=== PATIENT | male | born 1955 | race Caucasian/White ===

== ENCOUNTER 2021-12-20 09:37 | Observation (INO) ==
[2021-12-20 10:49] LABS: Basophils % 0.5 % (0.0-0.8); Eosinophils # 0.3 10*3/uL (0.0-0.87); Hematocrit 35.3 VOL% (42.0-52.0); Immature Granulocytes % 0.2 %; Immature Granulocytes Absolute 0.01 #; Lymphocytes # 2.3 10*3/uL (1.4-4.0); Lymphocytes % 38.7 % (21.2-54.2); Mean Corpuscular Volume 96.7 FL (87-102); Mean Platelet Volume 10.9 FL (9.6-12.0); Monocytes # 0.5 10*3/uL (0.11-0.8); Monocytes % 8.9 % (1.7-12.7); Neutrophils % 46.7 % (38.7-73.9); Platelet Count 222 T/CUMM (130-400); Red Blood Count 3.65 MC/CUMM (3.8-5.5); Red Cell Distribution Width 12.8 % (9.3-17.3); White Blood Count 6.1 T/CUMM (4-12)
[2021-12-20 11:10] LABS: Bilirubin,Total 0.4 MG/DL (0.20-1.00); Calcium 9.4 MG/DL (8.5-10.1); Osmolality,Calculated 281.5 MOS/KG (273-304); Platelet Estimate Adequate; Potassium 3.9 MMOL/L (3.5-5.1); Total Protein 7.4 G/DL (6.4-8.2)
[2021-12-20] MEDS ORDERED: ENOXAPARIN 100 MG/ML SYRINGE SUBCUT STA (11:39)
[2021-12-20] MEDS ORDERED: NITROGLYCERIN SL 0.4 MG TABLET SL PRN (11:39)
[2021-12-20] MEDS ORDERED: MORPHINE 2 MG/1 ML SYRINGE IV PRN (12:07)
[2021-12-20] MEDS ORDERED: ONDANSETRON 4 MG/2 ML VIAL IV PRN (12:07)
[2021-12-20] MEDS ORDERED: ACETAMINOPHEN 325 MG TABLET PO PRN (12:07)
[2021-12-20] MEDS ORDERED: POTASSIUM CHLORIDE RIDER 10 MEQ/100 ML PREMIX IV PRN (12:11)
[2021-12-20] MEDS ORDERED: diphenhydrAMINE CAP 50 MG CAPSULE PO ONE (12:11)
[2021-12-20] MEDS ORDERED: MAGNESIUM SULF RIDER 2 GM/50 ML PREMIX IV PRN (12:11)
[2021-12-20] MEDS ORDERED: SODIUM CHLORIDE 0.9% 1,000 ML IV SCH (12:30)
[2021-12-20 12:44] LABS: INR 0.9; PT Patient Result 10.1 SECS (10.5-12.0)
[2021-12-20] MEDS ORDERED: diphenhydrAMINE CAP 25 MG CAPSULE ONE (13:53)
[2021-12-20] MEDS ORDERED: HEPARIN/NACL 0.9% 2 UNITS/ML 2,000 UNIT/1,000 ML BAG IV ONE (13:59)
[2021-12-20 14:02] VITALS: BP 116/68
[2021-12-20] MEDS ORDERED: MIDAZOLAM 2 MG/2 ML VIAL ONE (14:19)
[2021-12-20] MEDS ORDERED: fentaNYL 100 MCG/2 ML VIAL ONE (14:19)
[2021-12-20] MEDS ORDERED: HEPARIN 5,000 UNIT/1 ML VIAL ONE (14:25)
[2021-12-20] MEDS ORDERED: PROPRANOLOL 40 MG TABLET PO SCH (21:00)
[2021-12-20] MEDS ORDERED: LATANOPROST 0.005% OPH SOLN 2.5 ML BOTTLE BOTH EYES SCH (21:00)
[2021-12-20] MEDS ORDERED: GABAPENTIN 300 MG CAPSULE PO SCH (21:00)
[2021-12-20] MEDS ORDERED: SIMVASTATIN 20 MG TABLET PO SCH (21:00)
[2021-12-20] MEDS ORDERED: allopurinoL 300 MG TABLET PO SCH (21:00)
[2021-12-21] MEDS ORDERED: CHLORTHALIDONE 25 MG TABLET PO SCH (09:00)
[2021-12-21] MEDS ORDERED: amLODIPine 10 MG TABLET PO SCH (09:00)
[2021-12-21] MEDS ORDERED: GABAPENTIN 300 MG CAPSULE PO SCH (09:00)
[2021-12-21] MEDS ORDERED: ASPIRIN EC 81 MG TABLET PO SCH (09:00)
== END 2021-12-20 16:48 | disposition home or self-care (01) ==
LOC: N.ED 09:37 → N.EDINP 09:37 → N.TELES 13:55
PROVIDERS: ADMIT Internal Medicine Cardiovascular Disease; ATTEND Internal Medicine Cardiovascular Disease